=== PATIENT | male | born 1955 | race Caucasian/White ===

== ENCOUNTER 2024-07-30 01:46 | Emergency (ER) | payer OTHER ==
[~2024-07-30] VITALS: Ht 175.3 cm; Wt 75.5 kg
[~2024-07-30 01:46] MED LIST: HYDROCODON-ACE1 EA10 PO
--- OUTSIDE RECORDS SUMMARY | 2024-07-30 01:47 | XMS ---
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 Leroy has no Care Guidelines for this patient. [place] VIS[facility] COUNT (12 MO.) [facility] T[facility] NOTE: Visits indicate total known visits. ED/[facility] VISIT TRACKING (12 MO.) [facility] [place] [facility] COMPLAINT: - POST OP PROBLEM 07/21/2024 09:41 [facility] [place] TYPE: Emergency COMPLAINT: - ABDOMINAL PAIN INPATIENT VISIT TRACKING (12 MO.) 07/21/2024 09:42 [facility] [place] TYPE: Observation COMPLAINT: - INCARCERATED RECURRENT R INGUINAL HERNIA CIRRHOSIS DIAGNOSES: - Benign lipomatous neoplasm of spermatic cord - Homelessness unspecified - Other stimulant abuse, uncomplicated - Unilateral inguinal hernia, with obstruction, without gangrene, recurrent - Unsheltered homelessness - Unspecified cirrhosis of liver [email or web address]
[2024-07-30] MEDS ORDERED: ondansetron HCL 4 MG/2 ML VIAL IV ONE (02:00)
[2024-07-30] MEDS ORDERED: MORPHINE SULFATE 4 MG/ML VIAL IV ONE (02:00)
[2024-07-30 02:16] LABS: BASOPHILS 0.5 % (0.2-1.2); EOSINOPHILS 1.4 % (0.8-7.0); HEMATOCRIT 43.7 % (40.1-51.0); HEMOGLOBIN 14.6 g/dL (13.7-17.5); LYMPHOCYTES 17.7 % (21.8-53.1); MCH 28.8 PG (25.7-32.2); MCHC 33.4 g/dL (32.3-36.5); MCV 86.2 fL (79.0-92.2); MONOCYTES 12.7 % (5.3-12.2); NEUTROPHILS 66.9 % (34.0-67.9); PLATELET COUNT 162 K/uL (163-337); RBC 5.07 M/uL (4.63-6.08)
[2024-07-30 02:31] LABS: ALBUMIN 2.8 g/dL (3.4-5.0); ALBUMIN/GLOBULIN RATIO 0.7 (1.1-2.4); ANION GAP 11.5 (7-21); BILIRUBIN, TOTAL 0.7 mg/dL (0.2-1.0); BUN/CREATININE RATIO 13.41 (6.0-28.6); CALCIUM 8.8 mg/dL (8.5-10.1); CREATININE, SERUM 0.82 mg/dL (0.70-1.30); MAGNESIUM 1.7 mg/dL (1.8-2.4); POTASSIUM 3.5 mmol/L (3.5-5.1); PROTEIN, TOTAL 6.8 g/dL (6.4-8.2)
[2024-07-30] MEDS ORDERED: HYDROCODON-ACE1 EA10 PO (02:37)
[2024-07-30] MEDS ORDERED: HYDROCODONE BIT/ACETAMINOPHEN 5/325 MG 1 TAB HOME.PACK PO ONE (02:45)
[2024-07-30 02:53] VITALS: BP 132/94
== END 2024-07-30 02:50 | disposition home or self-care (01) ==
LOC: ED 01:46
PROVIDERS: Family Medicine
DX: G89.18 Other acute postprocedural pain (principal); R10.31 Right lower quadrant pain
CPT/HCPCS: 36415; 80053; 83735; 85025; 96374; 96375; 99284-25; A9270; J2270; J2405

== ENCOUNTER 2024-08-10 08:00 | Emergency (ER) | payer OTHER ==
[~2024-08-10] VITALS: Ht 175.3 cm; Wt 67.0 kg
--- OUTSIDE RECORDS SUMMARY | 2024-08-10 08:00 | XMS ---
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 Leroy has no Care Guidelines for this patient. [place] [facility] MO[facility] T[facility] NOTE: Visits indicate total known visits. ED/C VISIT TRACKING (12 MO.) [facility]24 08[facility] [place] [facility] COMPLAINT: - ABDOMINAL PAIN 07/30/2024 01:47 [facility] [place] TYPE: Emergency COMPLAINT: - POST OP PROBLEM DIAGNOSES: - Other acute postprocedural pain - Other acute postprocedural pain - Right lower quadrant pain - Right lower quadrant pain 07/21/2024 09:41 [facility] [place] TYPE: Emergency [...] Unsheltered homelessness - Unspecified cirrhosis of liver [email or web address]
[2024-08-10] MEDS ORDERED: ondansetron HCL 4 MG TAB PO ONE (08:15)
[2024-08-10] MEDS ORDERED: HYDROmorphone HCL 1 MG/ML SYR IV PRN (08:15)
[2024-08-10] MEDS ORDERED: SODIUM CHLORIDE 0.9% 1,000 ML IV ONE (08:15)
[2024-08-10 08:26] LABS: BASOPHILS 0.6 % (0.2-1.2); EOSINOPHILS 1.6 % (0.8-7.0); HEMATOCRIT 51.2 % (40.1-51.0); LYMPHOCYTES 31.8 % (21.8-53.1); MCH 28.5 PG (25.7-32.2); MCHC 33.2 g/dL (32.3-36.5); MCV 85.8 fL (79.0-92.2); MONOCYTES 13.1 % (5.3-12.2); NEUTROPHILS 52.6 % (34.0-67.9); PLATELET COUNT 200 K/uL (163-337); RBC 5.97 M/uL (4.63-6.08)
[2024-08-10 08:41] LABS: ALBUMIN 3.4 g/dL (3.4-5.0); ALBUMIN/GLOBULIN RATIO 0.72 (1.1-2.4); ANION GAP 12.3 (7-21); BILIRUBIN, TOTAL 1.2 mg/dL (0.2-1.0); BUN/CREATININE RATIO 15.78 (6.0-28.6); CALCIUM 9.4 mg/dL (8.5-10.1); CREATININE, SERUM 0.95 mg/dL (0.70-1.30); POTASSIUM 4.3 mmol/L (3.5-5.1); PROTEIN, TOTAL 8.1 g/dL (6.4-8.2)
[2024-08-10] MEDS ORDERED: NAPROXEN500 MG PO (10:04)
[2024-08-10] MEDS ORDERED: DOXYCYCLINE HY100 MG PO (10:04)
[2024-08-10] MEDS ORDERED: DOXYCYCLINE HYCLATE 100 MG CAP PO ONE (10:15)
[2024-08-10 10:16] LABS: BILIRUBIN, URINE NEGATIVE (negative); BLOOD/HGB, URINE NEGATIVE (Negative); KETONE, URINE NEGATIVE (Negative); LEUK ESTERASE, URINE NEGATIVE (negative); NITRITE, URINE NEGATIVE (negative)
[2024-08-10 10:30] VITALS: BP 128/97
== END 2024-08-10 10:31 | disposition home or self-care (01) ==
LOC: ED 08:00
PROVIDERS: Emergency Medicine
DX: G89.18 Other acute postprocedural pain (principal); R10.31 Right lower quadrant pain
CPT/HCPCS: 36415; 74177; 80053; 81003; 85025; 96375; 99284-25; A9270; J1171; J7030; Q9967

== ENCOUNTER 2025-01-14 13:10 | Emergency (ER) | payer OTHER ==
[~2025-01-14] VITALS: Ht 175.3 cm; Wt 76.8 kg
[~2025-01-14 13:10] MED LIST changes: +DOXYCYCLINE HY100 MG PO; +NAPROXEN500 MG PO
[2025-01-14 15:04] VITALS: BP 116/86
== END 2025-01-14 14:59 | disposition home or self-care (01) ==
LOC: ED 13:10
DX: L84 Corns and callosities (principal)
CPT/HCPCS: 99283